=== PATIENT | male | born 1955 | race African-American/Black ===

== ENCOUNTER 2017-01-01 15:26 | Emergency (ER) | payer OTHER ==
[2017-01-01] MEDS ORDERED: KETOROLAC TROMETHAMINE 60 MG/2 ML VIAL IM ONE (18:23)
[2017-01-01] MEDS ORDERED: ORPHENADRINE CITRATE 60 MG/2ML ONE (18:24)
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
[2017-01-01] MEDS ORDERED: ORPHENADRINE CITRATE 60 MG/2ML IM ONE (18:31)
[2017-01-01 18:43] VITALS: BP 145/96
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
[2017-01-01] MEDS ORDERED: ORPHENADRINE CITRATE 100 MG TAB PO SCH (19:00)
== END 2017-01-01 18:41 | disposition home or self-care (01) ==
LOC: ED 15:26
DX: S16.1XXA Strain of muscle, fascia and tendon at neck level, initial encounter (principal); V49.9XXA Car occupant (driver) (passenger) injured in unspecified traffic accident, initial encounter; Y93.9 Activity, unspecified; Y99.9 Unspecified external cause status
CPT/HCPCS: 70450; 71250; 72125; 93005; J1885; J2360; 96372; 99283